=== PATIENT | male | born 1955 | race African-American/Black ===

== ENCOUNTER 2020-10-08 10:00 | Emergency (ER) | payer OTHER ==
[2020-10-08 10:24] VITALS: BP 171/76; PULSE 75; TEMP 97.5; BMI 41.9
[2020-10-08 11:21] LABS: BASO % 0.7 % (0-2.0); EOS % 4.1 % (0-4.5); HEMATOCRIT 38.7 % (35.4-49); HEMOGLOBIN 13.2 GM/dL (11.7-16.9); LYMPH % 20.7 % (8-40); MCH 28.9 pg (25.7-33.7); MEAN CELL VOLUME 84.8 fl (80-96); MEAN PLT VOLUME 9.2 fl (7.5-11.1); MONO % 6.6 % (3.8-10.2); NEUT % 67.9 % (42.8-82.8); PLATELET COUNT 307 K/MM3 (134-434); RBC 4.56 M/mm3 (4.00-5.60); RDW 15.2 % (11.9-15.9)
[2020-10-08 11:48] LABS: CHLORIDE 105 mmol/L (98-107); SODIUM 139 mmol/L (136-145)
[2020-10-08 11:50] LABS: CALCIUM 9.1 mg/dL (8.5-10.1)
[2020-10-08 11:51] LABS: ALBUMIN 3.5 g/dl (3.4-5.0); BLOOD UREA NITROGEN 21.1 mg/dL (7-18); CO2 30 mmol/L (21-32); GLUCOSE,RANDOM 121 mg/dL (74-106)
[2020-10-08 11:53] LABS: SGPT/ALT 17 U/L (13-61)
[2020-10-08 11:54] LABS: CREATININE 1.1 mg/dL (0.55-1.3); SGOT/AST 41 U/L (15-37)
[2020-10-08 11:55] LABS: BILIRUBIN,TOTAL 0.6 mg/dL (0.2-1)
[2020-10-08 11:56] LABS: ALK PHOS 97 U/L (45-117)
[2020-10-08 12:00] LABS: ANION GAP 4 MMOL/L (8-16); POTASSIUM 5.2 mmol/L (3.5-5.1)
== END 2020-10-08 12:28 | disposition home or self-care (01) ==
LOC: SUPCPDRO 10:00 → JER 10:00
DX: R42 Dizziness and giddiness (principal)
CPT/HCPCS: 36415; 71046-TC-FY; 80053; 84484; 85025; 93005; 93010; 99285-25